=== PATIENT | male | born 1940 | race Caucasian/White ===

== ENCOUNTER → 2017-09-22 | Outpatient (CLI) | payer OTHER ==
[~2017-09-22] MED LIST: ALEVE220 MG PO; ASA81BEC PO; CLARITIN10 MG PO; EPIPEN 2-P0.3 MG/0.3 IM; LEXAPRO 10 MG T10 M1 PO; MELATONIN3 MG PO; MOBIC15 MG PO; PROAIR HFA8.5 GM INH; SILDENAFIL20 MG PO; SYNTHROID50 MCG PO; TYLENOL325 MG PO; WELLBUTRIN XL150 MG PO
[2017-09-22 10:33] VITALS: BP 147/87
== END ==
LOC: SEN 08:10
DX: Z09 Encounter for follow-up examination after completed treatment for conditions other than malignant neoplasm (principal); M79.602 Pain in left arm; R25.1 Tremor, unspecified; E78.5 Hyperlipidemia, unspecified; E03.9 Hypothyroidism, unspecified; G47.33 Obstructive sleep apnea (adult) (pediatric)

== ENCOUNTER → 2017-11-26 | Outpatient (CLI) | payer OTHER ==
[~2017-11-26] MED LIST changes: +VITAMIN D3400 UNIT PO
[2017-11-26 09:58] VITALS: BP 140/85
== END ==
LOC: SEN 08:16
DX: E03.9 Hypothyroidism, unspecified (principal); F32.9 Major depressive disorder, single episode, unspecified; F41.9 Anxiety disorder, unspecified

== ENCOUNTER → 2018-03-25 | Outpatient (CLI) | payer OTHER ==
[~2018-03-25] MED LIST changes: +LEXAPRO20 MG PO
== END ==
LOC: RAD 07:52
DX: R06.02 Shortness of breath (principal); E03.9 Hypothyroidism, unspecified; E66.9 Obesity, unspecified; E78.5 Hyperlipidemia, unspecified; N40.0 Benign prostatic hyperplasia without lower urinary tract symptoms

== ENCOUNTER → 2018-04-15 | Outpatient (CLI) | payer OTHER ==
--- NOTE | 2018-04-20 00:02 | SLE ---
[facility] [place] [address] POLYSOMNOGRAPHY STUDY Name: LANDRY CASH Room #: REG [facility]#: [id number] Admission: 04/15/18 ������������������ Attend Phys: Shree Barajas MD Discharge: ������������������ Date of : 38 Report #: [id number] THIS REPORT FOR: //name// CC: Shree Goodman MD DATE OF SERVICE: 04/15/2018 ATTENDING PHYSICIAN: Jeff Goodman MD INDICATIONS: The patient is 78 years old who weighs 196 pounds with a BMI of 28.8. The patient has a history of sleep apnea and despite using CPAP, he continues to have hypersomnia. His Boyd score is 16. During a recent download, his AHI was 6.4 per hour. Another titration study was performed and MSLT was also ordered the next day; however, it was canceled as the patient required higher CPAP pressure than his baseline. INTERPRETATION: During the night study, the patient spent 462 minutes in bed and slept for 310 minutes with a sleep efficiency of 67%, which was low. Sleep latency was 31.2 minutes with a REM latency of 97 minutes. Overall, sleep architecture showed a normal stage 1 sleep, increased stage 2 sleep, reduced N3 sleep and increased REM sleep, which was 30% of the total sleep time. EKG monitoring revealed an average heart rate of 65 beats per minute. PVC's were seen throughout the study. No sustained arrhythmias observed. PLMS were seen at an index of 82 per hour and 12.8 per hour caused EEG arousals. The patient was started on his home CPAP pressure of 13 cm water and needed the titration up to 17 cm water. At the final pressure, the patient slept for 97.7 minutes. The patient had 29 minutes of REM sleep. The patient also had supine sleep as well. The patient's AHI was reduced to 0.6 per hour and oxygen saturation remained above 92%. MSLT was not performed the next day. IMPRESSION: 1. Sleep apnea diagnosed previously. 2. Severe periodic limb movements during sleep at an index of 82 per hour and 12.8 per hour caused EEG arousals. 3. 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 RECOMMENDATIONS: 1. CPAP at 17 cm water completely eliminated the patient's sleep apnea and should be used on a nightly basis. 2. Follow up in 4-6 weeks to assess compliance with CPAP and to document [address] [address] POLYSOMNOGRAPHY STUDY Name: LANDRY CASH [id number] Admission: 04/15/18 ������������������ Attend Phys: Shree Barajas MD Discharge: ������������������ Date of : 38 Report #: [id number] clinical improvement. 3. The patient has severe PLMS with EEG arousals. This can also contribute to the patient's daytime somnolence and can be treated with dopaminergic agonist agents. The patient should also be further evaluated for symptoms of restless legs during the day. 4. Patient's insomnia should be further evaluated and treated according to the etiology.It can also contribute to daytime time somnolence. 5. Weight loss is advised. 6. Avoid TRANSPORT AIDE depressants. 7. Cautioned regarding driving until the patient's hypersomnia is resolved with above recommendations. ��������������������������������������������� <ELECTRONICALLY SIGNED> ���������������������������������������� By: Shree Barajas MD ��������������������������������������������� 04/20/18 [id number] Shree Barajas MD /nt
== END ==
LOC: SLEEPLAB 13:10
DX: G47.30 Sleep apnea, unspecified (principal)

== ENCOUNTER → 2019-08-08 | Outpatient (CLI) | payer OTHER ==
[2019-08-09 18:29] LABS: AMP/METHAMP Negative (Negative); BARBITURATES Negative (Negative); BENZODIAZEPINES Negative (Negative); COCAINE Negative (Negative); METHADONE Negative (Negative); OPIATES Negative (Negative); PCP Negative (Negative)
--- NOTE | 2019-08-10 14:26 | SLE ---
[facility] [place] [address] POLYSOMNOGRAPHY STUDY Name: LANDRY CASH Room #: REG [facility]#: [id number] Admission: 08/08/19 Attend Phys: Shree Barajas MD Discharge: Date of : 39 Report #: [id number] THIS REPORT FOR: //name// CC: Shree Goodman MD DATE OF SERVICE: 08/08/2019 SLEEP STUDY ATTENDING PHYSICIAN: Dr. Jeff Goodman. The patient is 79 years old who weighs 195 pounds with a BMI of 28.8. The patient has history of sleep apnea for which the patient has been using auto CPAP effectively. However, the patient remains symptomatic with an Par[place] score of 16. Review of medications does not reveal any use of chronic sedatives or narcotics. Sleep study with CPAP on was performed followed by MSLT. The results of the sleep study are reported here. During the night study, the patient spent 518 minutes in bed and slept for 373 minutes with a sleep efficiency of 72%. Sleep latency was 5.8 minutes with a REM latency of 80 minutes. Sleep architecture showed normal stage 1 sleep, increased stage 2 sleep, reduced N3 sleep and slightly increased REM sleep, which was 27% of total sleep time. EKG monitoring revealed an average heart rate of 63 beats per minute. No sustained arrhythmias observed. Scattered PVCs seen. No significant PLM seen. The patient was started on CPAP at a pressure of 13 cm water. At that pressure, the patient slept for 238 minutes and AHI was only 0.3 per hour. Since the average mean pressure was 15 cm water based on the download data, the signals collection technician increased the pressure to 15 cm water. At that pressure, the patient slept for 134 minutes including 56 minutes of REM sleep and AHI was still 1.3 per hour. Saturation remained above 92%. Both CPAP pressure at 13 and 15 cm water were effective. The patient underwent MSLT the next day, which will be reported separately. IMPRESSION: 1. Sleep apnea diagnosed previously. 2. No clinically significant periodic limb movements. 3. Reduced sleep efficiency of 72%, resulting from sleep-maintenance insomnia. [facility] [address] [place] [address] POLYSOMNOGRAPHY STUDY Name: LANDRY CASH Room #: REG [facility]#: [id number] Admission: 08/08/19 Attend Phys: Shree Barajas MD Discharge: Date of : 38 Report #: [id number] RECOMMENDATIONS: 1. CPAP at 15 cm water effectively controls the patient's sleep apnea. Lower CPAP pressure of 13 cm water was also effective. 2. Avoid SATURATOR TENDER depressants. 3. Cautioned regarding driving until the patient's hypersomnia is resolved. 4. The patient underwent MSLT the next day, which will be reported separately. <ELECTRONICALLY SIGNED> By: Shree Barajas MD 08/10/19 1426 [id number] Shree Barajas MD /shawna
--- NOTE | 2019-08-10 16:05 | SLE ---
[facility] [place] [address] POLYSOMNOGRAPHY STUDY Name: LANDRY CASH Room #: REG [facility]#: [id number] Admission: 08/08/19 Attend Phys: Shree Barajas MD Discharge: Date of : 38 Report #: [id number] THIS REPORT FOR: //name// CC: Shree Goodman DATE OF SERVICE: 08/10/2019 MULTIPLE SLEEP LATENCY TEST ATTENDING PHYSICIAN: Dr. Jeff Goodman. DATE OF STUDY: 08/09/2019. The patient underwent nocturnal polysomnogram while on CPAP, followed by MSLT. The patient has a history of sleep apnea for which he has been on CPAP at 13 cm water. However, the patient has been experiencing persistent hypersomnia despite effective use of CPAP. Download data from June to July revealed that the patient was averaging more than 8 hours of sleep and the patient's AHI was only 2.2 per hour. As a result, multiple sleep latency test was requested. The patient underwent a sleep study while sleeping on CPAP the night prior to the MSLT. The patient's sleep efficiency was 72%. The patient's AHI, while on CPAP at 13 cm water, was 0.3 per hour and while on 15 cm water, was 1.3 per hour. Review of the patient's sleep log also suggest that the patient has been averaging 8 hours of sleep at home, but has been having persistent hypersomnia. Standard MSLT protocol was used. The patient was given 5 daytime nap opportunities, spaced at 2 hour intervals and the study began at 8:18 a.m. During the first nap session, the patient had a sleep latency of 8 minutes and 48 seconds. No REM sleep was observed. During the second nap session, the patient's sleep latency was 7 minutes and 6 seconds and no REM sleep was observed. During the third nap session, the patient's sleep latency was 7 minutes and 30 seconds and no REM sleep observed. During the fourth nap session, the patient's sleep latency was 6 minutes and no REM sleep was observed. During the last nap session, the patient did not have sleep. As a result, the patient's recorded sleep latency was 20 minutes. The patient's mean sleep latency for all 5 naps was 9 minutes and 52 seconds. However, the patient's mean sleep latency for the first 4 naps was 7 minutes and 21 seconds. IMPRESSION: 1. Mildly abnormal multiple sleep latency test with a mean sleep latency of 9 minutes and 52 seconds. No REM sleep was observed. This [place] [address] POLYSOMNOGRAPHY STUDY Name: LANDRY CASH Room #: REG [facility]#: [id number] Admission: 08/08/19 Attend Phys: Shree Barajas MD Discharge: Date of : 38 Report #: [id number] DISCUSSION: The patient's multiple sleep latency test was mildly abnormal with a mean sleep latency of 9 minutes and 52 seconds. The patient did not have any REM sleep. As a result, narcolepsy criteria was not met. The patient's sleep latency for the first 4 naps was shorter and it was 7 minutes and 21 seconds. No sleep was observed during the last nap session. It should be noted that the patient's sleep efficiency the night before MSLT was 72%, which was low, and can also account for patient's mildly abnormal multiple sleep latency tests. However, review of the patient's sleep log suggests that the patient averages about 8 hours of sleep every night and still has persistent hypersomnia, so chronic sleep deprivation seems less likely explanation of abnormal MSLT. There is a small subset of patients who have sleep apnea and who uses CPAP effectively, can also have persistent hypersomnia and would benefit from a trial of stimulant medications. 1. Consider trial of stimulant medication to see clinical improvement. 2. Avoid CODING SPECIALIST depressants. 3. Cautioned regarding driving until the patient's hypersomnia is resolved. <ELECTRONICALLY SIGNED> By: Shree Barajas MD 08/10/19 1605 [id number] [id number] Shree Barajas MD /nt
== END ==
LOC: SLEEPLAB 19:37
PROVIDERS: ATTEND Internal Medicine Critical Care Medicine
DX: G47.33 Obstructive sleep apnea (adult) (pediatric) (principal); Z99.89 Dependence on other enabling machines and devices